=== PATIENT | male | born 1950 | race Caucasian/White ===

== ENCOUNTER → 2018-06-22 | Outpatient (CLI) | payer OTHER ==
[~2018-06-22] MED LIST: CHOL2000 PO; MESA0.37 PO; METO50TA16 PO; OMEG10007 PO
--- NOTE | 2018-06-22 14:36 | DIAGNOSTIC IMAGING REPORT ---
HEAD CT NONCONTRAST CT DOSE: 614.27 mGy.cm HISTORY: L98.9 Scalp lesion TECHNIQUE: Multiaxial CT images of the head were performed without the use of intravenous contrast. Automated exposure control was utilized for this study. A dose lowering technique was utilized adhering to the principles of ALARA. Comparison: None. Findings: The paranasal sinuses and mastoid air cells are clear. The calvarium and skull base are intact. The ventricles and sulci are within normal limits. There is no mass, hematoma, midline shift, or acute infarct. No suspicious calvarial lesions. No scalp lesions identified. Of note, evaluation for a scalp lesion is suboptimal on a noncontrast study. Impression: 1. No acute intracranial abnormality. 2. No suspicious scalp or calvarial lesions. If the patient is complaining of a palpable abnormality on the scalp within consider ultrasound follow-up. Electronically signed by: Erich Germain M.D. 06/22/2018 2:34 PM Dictated Date/Time: 06/22/2018 2:27 PM
== END | disposition home or self-care (01) ==
LOC: C.CTS 14:06
PROVIDERS: ATTEND Internal Medicine
DX: L98.9 Disorder of the skin and subcutaneous tissue, unspecified (principal)